=== PATIENT | female | born 1970 | race Caucasian/White ===

== ENCOUNTER → 2020-12-26 | Outpatient (CLI) | payer OTHER ==
--- NOTE | 2020-12-26 11:07 | 2DMMODE ---
[place] [address] 2 D/M-MODE ECHOCARDIOGRAM Name: VALERIA TURNER Room: [facility]#: [id number] Admission: 12/26/20 Attend Phys: Dick Francisco MD Discharge: Date of : 68 Date of Service: 12/26/20 1106 Report #: [id number] THIS REPORT FOR: cc: Marta Davis Bethany J. Holkins,Nabeel Hernandez MD [facility] ~ APPROVED REPORT Study performed: 12/26/2020 10:29:11 EXAM: Comprehensive 2D, Doppler, and color-flow Echocardiogram Patient Location: Out-Patient Status: routine BSA: 1.82 HR: 72 bpm Rhythm: NSR Other Information Study Quality: Good Indications Chemo 2D Dimensions IVSd: 6.78 (7-11mm) LVOT Diam: 19.85 (18-24mm) LVDd: 39.36 mm PWd: 8.92 (7-11mm) Ascending Ao: 28.70 (22-36mm) LVDs: 20.40 (25-40mm) Aortic Root: 28.99 mm Volumes Left Atrial Volume (Systole) LA ESV Index: 16.50 mL/m2 Aortic Valve AoV Peak Roger.: 1.39 m/s AO Peak Gr.: 7.77 mmHg LVOT Max P.45 mmHg AO Mean Gr.: 4.54 mmHg LVOT Mean P.11 mmHg LVOT Max V: 0.93 m/s AO V2 VTI: 27.48 cm LVOT Mean V: 0.69 m/s HUSSAIN (VTI): 2.16 cm2 LVOT V1 VTI: 19.15 [place] [address] 2 D/M-MODE ECHOCARDIOGRAM Name: VALERIA TURNER Room: [facility]#: [id number] Admission: 12/26/20 Attend Phys: Dick Francisco MD Discharge: Date of : 68 Date of Service: 12/26/20 1106 Report #: [id number] Mitral Valve E/A Ratio: 1.17 MV Decel. Time: 215.48 ms MV E Max Roger.: 0.85 m/s MV PHT: 62.49 ms MVA (PHT): 3.52 cm2 TDI E/Lateral E': 5.67 E/Medial E': 8.50 Medial E' Roger.: 0.10 m/s Lateral E' Roger.: 0.15 m/s Pulmonary Valve PV Peak Roger.: 0.93 m/s PV Peak Gr.: 3.43 mmHg Left Ventricle The left ventricle is normal size. There is normal LV segmental wall motion. There is normal left ventricular wall thickness. Left ventricular systolic function is normal. The left ventricular ejection fraction is within the normal range. LVEF is 60-65%. Grade I - abnormal relaxation pattern. Right Ventricle The right ventricle is normal size. The right ventricular systolic function is normal. Atria The left atrium size is normal. The right atrium size is normal. Aortic Valve The aortic valve is normal in structure. No aortic regurgitation is present. There is no aortic valvular stenosis. Mitral Valve The mitral valve is normal in structure. There is no mitral valve regurgitation noted. No evidence of mitral valve stenosis. Tricuspid Valve The tricuspid valve is normal in structure. Unable to assess PA pressure. Trace tricuspid regurgitation. Pulmonic Valve The pulmonary valve is normal in structure. There is [place] [address] 2 D/M-MODE ECHOCARDIOGRAM Name: VALERIA TURNER Room: [facility]#: [id number] Admission: 12/26/20 Attend Phys: Dick Francisco MD Discharge: Date of : 68 Date of Service: 12/26/20 1106 Report #: [id number] Great Vessels The aortic root is normal in size. IVC is normal in size and collapses >50% with inspiration. Pericardium There is no pericardial effusion. <Conclusion> The left ventricle is normal size. Left ventricular systolic function is normal. The left ventricular ejection fraction is within the normal range. LVEF is 60-65%. Grade I - abnormal relaxation pattern. The right ventricle is normal size. The left atrium size is normal. The aortic valve is normal in structure. The mitral valve is normal in structure. The tricuspid valve is normal in structure. IVC is normal in size and collapses >50% with inspiration. There is no pericardial effusion. There is normal LV segmental wall motion. <ELECTRONICALLY SIGNED> By: Nabeel Nunn MD, [facility] 12/26/20 1106 1106 1106 Nabeel Nunn MD, FACC /INF
== END ==
LOC: M.CRD 12-19 13:06 → M.NUC 09:42
PROVIDERS: ATTEND Internal Medicine Hematology & Oncology
DX: C50.912 Malignant neoplasm of unspecified site of left female breast (principal); Z17.1 Estrogen receptor negative status [ER-]